=== PATIENT | female | born 1950 | race Caucasian/White ===

== ENCOUNTER 2021-09-08 19:03 | Emergency (ER) | payer MEDICARE, OTHER ==
[~2021-09-08] VITALS: Ht 167.6 cm; Wt 126.8 kg
[2021-09-08] MEDS ORDERED: CLOPIDOGREL75 MG PO (21:15)
[2021-09-08] MEDS ORDERED: ATORVASTATIN CA10 M1 PO (21:15)
[2021-09-08] MEDS ORDERED: Lopressor25 MG PO (21:16)
[2021-09-08] MEDS ORDERED: LEVOTHYROXINE150 MCG PO (21:17)
[2021-09-08] MEDS ORDERED: NEURONTIN300 MG PO (21:17)
[2021-09-08] MEDS ORDERED: GLIPIZIDE5 MG PO (21:17)
[2021-09-08] MEDS ORDERED: JANUVIA100 MG PO (21:18)
[2021-09-08] MEDS ORDERED: FUROSEMIDE20 M1 PO (21:18)
[2021-09-08] MEDS ORDERED: AMLODIPINE BESYL5 MG PO (21:18)
[2021-09-08] MEDS ORDERED: METFORMIN HYD1000 MG PO (21:18)
[2021-09-08] MEDS ORDERED: MYRBETRIQ50 M1 PO (21:19)
[2021-09-08] MEDS ORDERED: TROSPIUM CHLORI20 M1 PO (21:20)
[2021-09-08] MEDS ORDERED: ASPIRIN CHEWABL81 MG PO (21:20)
[2021-09-08] MEDS ORDERED: OXYBUTYNIN5 MG PO (21:21)
[2021-09-08 22:27] LABS: BASO # 0.1 10*3/uL (0.0-0.1); BASO % 0.8 % (0.0-1.0); EOS # 0.2 10*3/uL (0.0-0.4); HEMATOCRIT 31.3 % (37.0-47.0); LYMPH # 1.3 10*3/uL (1.3-4.4); LYMPH % 7.8 % (27.0-41.0); MEAN CORPUSCULAR HGB 34.5 pg (27.0-31.0); MEAN CORPUSCULAR HGB CONC 33.9 g/dl (33.0-37.0); MEAN PLATELET VOLUME 10.4 fl (9.6-12.3); MONO # 0.9 10*3/uL (0.1-1.0); MONO % 5.3 % (3.0-9.0); NEUT # 13.8 10*3/uL (2.3-7.9); NEUT % 84.1 % (47.0-73.0); PLATELET COUNT AUTOMATED 253 10*3/uL (130-400); RED BLOOD COUNT 3.07 10*6/uL (4.10-5.10); RED CELL DISTRI WIDTH 12.8 % (0-14.5); WHITE BLOOD COUNT 16.5 10*3/uL (4.8-10.8)
[2021-09-08 22:31] LABS: BUN 19 mg/dl (7-24); CHLORIDE 103 mmol/L (98-107); CREATININE 1.07 mg/dL (0.55-1.02); POTASSIUM 4.5 mmol/L (3.5-5.1); SODIUM 137 mmol/L (136-145)
[2021-09-08 23:15] LABS: ACT PARTIAL THROMBO TIME 25.4 SECONDS (20.0-32.1)
== END 2021-09-08 23:44 | disposition short-term general hospital (02) ==
LOC: ED 19:03
PROVIDERS: Internal Medicine
DX: S72.8X2A Other fracture of left femur, initial encounter for closed fracture (principal); S00.93XA Contusion of unspecified part of head, initial encounter; Z79.899 Other long term (current) drug therapy; Z79.82 Long term (current) use of aspirin; W18.39XA Other fall on same level, initial encounter; Y93.89 Activity, other specified; Y92.89 Other specified places as the place of occurrence of the external cause; Y99.8 Other external cause status

== ENCOUNTER 2021-09-30 07:52 | Emergency (ER) | payer MEDICARE, OTHER ==
[~2021-09-30] VITALS: Ht 167.6 cm; Wt 108.9 kg
[~2021-09-30 07:52] MED LIST: AMLODIPINE BESYL5 MG PO; ASPIRIN CHEWABL81 MG PO; ATORVASTATIN CA10 M1 PO; CLOPIDOGREL75 MG PO; FUROSEMIDE20 M1 PO; GLIPIZIDE5 MG PO; JANUVIA100 MG PO; LEVOTHYROXINE150 MCG PO; Lopressor25 MG PO; METFORMIN HYD1000 MG PO; MYRBETRIQ50 M1 PO; NEURONTIN300 MG PO; OXYBUTYNIN5 MG PO; TROSPIUM CHLORI20 M1 PO
[2021-09-30 08:26] LABS: MEAN CORPUSCULAR HGB CONC 32.7 g/dl (33.0-37.0); MEAN PLATELET VOLUME 9.3 fl (9.6-12.3); PLATELET COUNT AUTOMATED 471 10*3/uL (130-400); RED BLOOD COUNT 3.06 10*6/uL (4.10-5.10); RED CELL DISTRI WIDTH 14.5 % (0-14.5); WHITE BLOOD COUNT 13.4 10*3/uL (4.8-10.8)
[2021-09-30 08:33] LABS: BILIRUBIN 1+ (Negative); BLOOD 1+ (Negative); CLARITY Turbid (Clear); COLOR Red (Yellow); GLUCOSE Negative (Negative); KETONE Negative (Negative); LEUKO ESTERASE 3+ (Negative); NITRITE Positive (Negative); SPECIFIC GRAVITY 1.015 (1.001-1.030); UROBILINOGEN 0.2 E.U./dl (0.0-1.0)
[2021-09-30 08:37] LABS: MANUAL DIFF REFLEX YES
[2021-09-30 08:41] LABS: CREATININE 1.44 mg/dL (0.55-1.02); POTASSIUM 4.2 mmol/L (3.5-5.1); TOTAL PROTEIN 6.2 gm/dL (6.4-8.2)
[2021-09-30 08:44] LABS: RBC TNTC rbc/hpf (0-2); WBC TNTC wbc/hpf (0-5)
[2021-09-30 08:46] LABS: ACT PARTIAL THROMBO TIME 26.6 SECONDS (20.0-32.1); INTERNATIONAL NORM RATIO 1.1 (2.0-3.5)
[2021-09-30 08:48] LABS: PLATELET SUFFICIENCY HIGH (NORMAL); POLYCHROMASIA SLIGHT; ROULEAUX SLIGHT; TOTAL CELLS COUNTED 100 #CELLS
[2021-09-30] MEDS ORDERED: SEPTDS PO (10:31)
== END 2021-09-30 10:44 ==
LOC: ED 07:52
PROVIDERS: Emergency Medicine
DX: N93.8 Other specified abnormal uterine and vaginal bleeding (principal); N39.0 Urinary tract infection, site not specified; Z79.899 Other long term (current) drug therapy; Z79.82 Long term (current) use of aspirin

== ENCOUNTER 2021-10-23 08:31 | Inpatient (IN) | payer MEDICARE, OTHER ==
[2021-10-23] VITALS (54 sets, daily range): BP systolic 41–144; BP diastolic 18–77
[~2021-10-23] VITALS: Ht 170.2 cm; Wt 100.8 kg
[~2021-10-23 08:31] MED LIST changes: +SEPTDS PO
[2021-10-23 09:15] LABS: HEMATOCRIT 37.8 % (37.0-47.0); MEAN CELL VOLUME 110.9 fl (81.0-99.0); MEAN CORPUSCULAR HGB 32.3 pg (27.0-31.0); MEAN CORPUSCULAR HGB CONC 29.1 g/dl (33.0-37.0); MEAN PLATELET VOLUME 10.5 fl (9.6-12.3); PLATELET COUNT AUTOMATED 536 10*3/uL (130-400); RED BLOOD COUNT 3.41 10*6/uL (4.10-5.10)
[2021-10-23 09:17] LABS: MANUAL DIFF REFLEX YES
[2021-10-23 09:24] LABS: INTERNATIONAL NORM RATIO 1.2 (2.0-3.5)
[2021-10-23 09:42] LABS: TOTAL CELLS COUNTED 100 #CELLS
[2021-10-23 09:44] LABS: ACANTHOCYTES FEW; PLATELET SUFFICIENCY HIGH (NORMAL)
[2021-10-23 09:50] LABS: CREATININE 5.88 mg/dL (0.55-1.02); POTASSIUM 5.9 mmol/L (3.5-5.1); TOTAL PROTEIN 6.2 gm/dL (6.4-8.2)
[2021-10-23 11:23] LABS: BILIRUBIN Negative (Negative); BLOOD 2+ (Negative); CLARITY Turbid (Clear); COLOR Yellow (Yellow); GLUCOSE Negative (Negative); KETONE Trace (Negative); LEUKO ESTERASE 3+ (Negative); NITRITE Negative (Negative); UROBILINOGEN 0.2 E.U./dl (0.0-1.0)
[2021-10-23] MEDS ORDERED: CARAFATE1 G1 PO (11:42)
[2021-10-23] MEDS ORDERED: CYCLOBENZAPRINE5 M3 PO (11:43)
[2021-10-23] MEDS ORDERED: LEXAPRO10 MG PO (11:44)
[2021-10-23 11:45] LABS: WBC TNTC wbc/hpf (0-5)
[2021-10-23] MEDS ORDERED: NEURONTIN300 MG PO ×2 (11:46→11:47)
[2021-10-23] MEDS ORDERED: Imdur SA60 MG PO (11:50)
[2021-10-23] MEDS ORDERED: NYST SUSP PO (12:35)
[2021-10-23] MEDS ORDERED: PROTONIX TR40 M1 PO (12:36)
[2021-10-23 14:59] LABS: CREATININE 5.39 mg/dL (0.55-1.02); POTASSIUM 5.3 mmol/L (3.5-5.1); TOTAL PROTEIN 4.2 gm/dL (6.4-8.2)
[2021-10-23 15:50] LABS: ARTERIAL BLOOD GAS PO2 419.2 (80-90)
[2021-10-23 15:55] LABS: ABG BASE EXCESS -31.2 mmol/L (-2.0-2.0)
[2021-10-23 15:56] LABS: ARTERIAL BLOOD GAS PH 6.733 (7.35-7.45)
[2021-10-23 15:59] LABS: HEMATOCRIT 26.9 % (37.0-47.0); MEAN CORPUSCULAR HGB 32.2 pg (27.0-31.0); MEAN CORPUSCULAR HGB CONC 27.9 g/dl (33.0-37.0); MEAN PLATELET VOLUME 10.7 fl (9.6-12.3); PLATELET COUNT AUTOMATED 401 10*3/uL (130-400); RED BLOOD COUNT 2.33 10*6/uL (4.10-5.10); RED CELL DISTRI WIDTH 15.6 % (0-14.5)
[2021-10-23 16:00] LABS: MEAN CELL VOLUME 115.5 fl (81.0-99.0)
[2021-10-23 16:02] LABS: MANUAL DIFF REFLEX YES; WHITE BLOOD COUNT 48.2 10*3/uL (4.8-10.8)
[2021-10-23 16:24] LABS: BURR CELLS MANY; TOTAL CELLS COUNTED 100 #CELLS
[2021-10-23 16:25] LABS: PLATELET SUFFICIENCY HIGH (NORMAL)
[2021-10-23 18:05] LABS: MEAN CORPUSCULAR HGB 32.4 pg (27.0-31.0); MEAN CORPUSCULAR HGB CONC 28.4 g/dl (33.0-37.0); MEAN PLATELET VOLUME 10.3 fl (9.6-12.3); PLATELET COUNT AUTOMATED 471 10*3/uL (130-400); RED BLOOD COUNT 2.72 10*6/uL (4.10-5.10); RED CELL DISTRI WIDTH 15.4 % (0-14.5)
[2021-10-23 18:07] LABS: MANUAL DIFF REFLEX YES
[2021-10-23] MEDS ORDERED: ACETAMINOPHEN325 M2 PO (18:13)
[2021-10-23 18:19] LABS: CREATININE 5.36 mg/dL (0.55-1.02); TOTAL PROTEIN 4.9 gm/dL (6.4-8.2)
[2021-10-23] MEDS ORDERED: MUCINEX ER600 MG PO (18:23)
[2021-10-23] MEDS ORDERED: OXYCODONE HCL5 MG PO (18:24)
[2021-10-23] MEDS ORDERED: CEPACOL SORE T1 EACH MM (18:26)
[2021-10-23 18:47] LABS: BASOPHILS 1 % (0-1); BURR CELLS MANY; PLATELET SUFFICIENCY HIGH (NORMAL); TOTAL CELLS COUNTED 100 #CELLS
[2021-10-23 22:18] LABS: HEMATOCRIT 31.3 % (37.0-47.0); MEAN CELL VOLUME 113.4 fl (81.0-99.0); MEAN CORPUSCULAR HGB 31.9 pg (27.0-31.0); MEAN CORPUSCULAR HGB CONC 28.1 g/dl (33.0-37.0); MEAN PLATELET VOLUME 10.4 fl (9.6-12.3); PLATELET COUNT AUTOMATED 496 10*3/uL (130-400); RED BLOOD COUNT 2.76 10*6/uL (4.10-5.10); RED CELL DISTRI WIDTH 15.2 % (0-14.5)
[2021-10-23 22:21] LABS: MANUAL DIFF REFLEX YES
[2021-10-23 22:22] LABS: WHITE BLOOD COUNT 70.3 10*3/uL (4.8-10.8)
[2021-10-23 22:34] LABS: CREATININE 5.3 mg/dL (0.55-1.02); POTASSIUM 5.2 mmol/L (3.5-5.1); TOTAL PROTEIN 4.9 gm/dL (6.4-8.2)
[2021-10-23 22:40] LABS: BURR CELLS MODERATE; TOTAL CELLS COUNTED 100 #CELLS
[2021-10-23 22:41] LABS: PLATELET SUFFICIENCY HIGH (NORMAL)
[2021-10-24] VITALS (57 sets, daily range): BP systolic 76–141; BP diastolic 25–98
[2021-10-24 01:01] LABS: HEMATOCRIT 29.4 % (37.0-47.0); MEAN CELL VOLUME 112.6 fl (81.0-99.0); MEAN CORPUSCULAR HGB 31.4 pg (27.0-31.0); MEAN CORPUSCULAR HGB CONC 27.9 g/dl (33.0-37.0); MEAN PLATELET VOLUME 10.1 fl (9.6-12.3); PLATELET COUNT AUTOMATED 449 10*3/uL (130-400); RED BLOOD COUNT 2.61 10*6/uL (4.10-5.10); RED CELL DISTRI WIDTH 15.1 % (0-14.5)
[2021-10-24 01:06] LABS: MANUAL DIFF REFLEX YES; WHITE BLOOD COUNT 71.8 10*3/uL (4.8-10.8)
[2021-10-24 01:16] LABS: CREATININE 5.3 mg/dL (0.55-1.02); POTASSIUM 5.3 mmol/L (3.5-5.1); TOTAL PROTEIN 4.4 gm/dL (6.4-8.2)
[2021-10-24 01:22] LABS: BURR CELLS MODERATE; PLATELET SUFFICIENCY HIGH (NORMAL); TOTAL CELLS COUNTED 100 #CELLS
[2021-10-24 05:27] LABS: CREATININE 5.47 mg/dL (0.55-1.02); POTASSIUM 4.9 mmol/L (3.5-5.1)
[2021-10-24 05:29] LABS: FREE T4 1.1 ng/dl (0.76-1.46)
[2021-10-24 06:09] LABS: MEAN CELL VOLUME 111.5 fl (81.0-99.0); MEAN CORPUSCULAR HGB 31.7 pg (27.0-31.0); MEAN CORPUSCULAR HGB CONC 28.4 g/dl (33.0-37.0); MEAN PLATELET VOLUME 10.5 fl (9.6-12.3); PLATELET COUNT AUTOMATED 481 10*3/uL (130-400); RED BLOOD COUNT 2.87 10*6/uL (4.10-5.10); RED CELL DISTRI WIDTH 15.1 % (0-14.5)
[2021-10-24 06:19] LABS: MANUAL DIFF REFLEX YES; WHITE BLOOD COUNT 77.3 10*3/uL (4.8-10.8)
[2021-10-24 06:48] LABS: TOTAL CELLS COUNTED 100 #CELLS
[2021-10-24 06:49] LABS: ACT PARTIAL THROMBO TIME 60.6 SECONDS (20.0-32.1); BURR CELLS MODERATE; INTERNATIONAL NORM RATIO 1.3 (2.0-3.5); VACUOLATION OF NEUTROPHILS MODERATE
[2021-10-24 06:50] LABS: TOXIC GRANULATION SLIGHT
[2021-10-24 06:51] LABS: PLATELET SUFFICIENCY HIGH (NORMAL)
[2021-10-24 10:26] LABS: CREATININE 5.5 mg/dL (0.55-1.02); POTASSIUM 5.1 mmol/L (3.5-5.1)
[2021-10-24 11:53] LABS: VITAMIN D, 25-HYDROXY 14.4 ng/mL (30-100)
== END 2021-10-24 14:10 | disposition hospice, inpatient (51) | DRG 871 ==
LOC: ED 08:31 → EDHOLD 10:48 → ICCU 10:48
PROVIDERS: Emergency Medicine; Hospitalist; Internal Medicine; ADMIT Emergency Medicine; ATTEND Emergency Medicine
PROC: 0BH17EZ Insertion of Endotracheal Airway into Trachea, Via Natural or Artificial Opening (ICD-10-PCS; principal; 2021-10-23)
PROC: 5A1935Z Respiratory Ventilation, Less than 24 Consecutive Hours (ICD-10-PCS; 2021-10-23)
PROC: 02HV33Z Insertion of Infusion Device into Superior Vena Cava, Percutaneous Approach (ICD-10-PCS; 2021-10-23)
DX: A41.9 Sepsis, unspecified organism (principal); N17.0 Acute kidney failure with tubular necrosis; E43 Unspecified severe protein-calorie malnutrition; R65.21 Severe sepsis with septic shock; J96.00 Acute respiratory failure, unspecified whether with hypoxia or hypercapnia; N30.01 Acute cystitis with hematuria; K56.7 Ileus, unspecified; K92.0 Hematemesis; N18.5 Chronic kidney disease, stage 5; E87.1 Hypo-osmolality and hyponatremia; Z66 Do not resuscitate; E87.5 Hyperkalemia; Z51.5 Encounter for palliative care; R74.01 Elevation of levels of liver transaminase levels; E11.22 Type 2 diabetes mellitus with diabetic chronic kidney disease; I12.9 Hypertensive chronic kidney disease with stage 1 through stage 4 chronic kidney disease, or unspecified chronic kidney disease; E03.9 Hypothyroidism, unspecified; E11.649 Type 2 diabetes mellitus with hypoglycemia without coma; I25.10 Atherosclerotic heart disease of native coronary artery without angina pectoris; G47.33 Obstructive sleep apnea (adult) (pediatric); E11.42 Type 2 diabetes mellitus with diabetic polyneuropathy; M19.90 Unspecified osteoarthritis, unspecified site; Z68.34 Body mass index [BMI] 34.0-34.9, adult; Z90.49 Acquired absence of other specified parts of digestive tract; Z95.5 Presence of coronary angioplasty implant and graft; Z79.82 Long term (current) use of aspirin; Z79.899 Other long term (current) drug therapy

== ENCOUNTER 2021-10-24 14:28 | Inpatient (IN) | payer OTHER, MEDICARE ==
[~2021-10-24] VITALS: Ht 170.2 cm; Wt 100.8 kg
[2021-10-24 14:28] VITALS: BP 84/28
[~2021-10-24 14:28] MED LIST changes: +ACETAMINOPHEN325 M2 PO; +CARAFATE1 G1 PO; +CEPACOL SORE T1 EACH MM; +CYCLOBENZAPRINE5 M3 PO; +Imdur SA60 MG PO; +LEXAPRO10 MG PO; +MUCINEX ER600 MG PO; +NYST SUSP PO; +OXYCODONE HCL5 MG PO; +PROTONIX TR40 M1 PO
[2021-10-24 16:00] VITALS: BP 41/19
[2021-10-24 16:17] VITALS: BP 37/18
[2021-10-24 16:46] VITALS: BP 0/0
== END 2021-10-24 16:46 | DRG 871 ==
LOC: ICCU 14:28
PROVIDERS: ADMIT Emergency Medicine; ATTEND Emergency Medicine
DX: A41.9 Sepsis, unspecified organism (principal); Z66 Do not resuscitate; R65.21 Severe sepsis with septic shock; Z51.5 Encounter for palliative care; N17.0 Acute kidney failure with tubular necrosis; N39.0 Urinary tract infection, site not specified; N18.9 Chronic kidney disease, unspecified